=== PATIENT | female | born 1975 ===

== ENCOUNTER 2017-06-12 06:18 | Day surgery (SDC) | payer OTHER ==
[2017-06-12 06:37] VITALS: BMI 33.3
[2017-06-12] MEDS ORDERED: Lactated Ringer's 1,000 ML IV ONE (07:20)
--- NOTE | 2017-06-12 07:52 | CP.SDSHP ---
Same Day Surgery H & P - History Proposed Procedure: right open plantar fasciotomy Pre-Op Diagnosis: right painful plantar fasciotomy - Allergies Allergies: Allergies No Known Allergies Allergy (Verified 06/12/17 06:38) - Physical Exam Vital Signs: Vital Signs 06/12/17 06/12/17 07:00 07:36 Temperature 98.3 F Pulse Rate 68 68 Respiratory 18 Rate Blood Pressure 111/76 O2 Sat by Pulse 99 Oximetry Mental Status: Alert & Oriented x3 - {Optional Preform as Required} Integument: WNL - Impression Impression: Pt was seen and examined in SDS. Pt NPO status was confirmed. All pre-op testing and clearance in chart. Pt has exhausted all conservative treatment at this time and is opting for surgical intervention. Pt was explained procedure and post-operative course. All pt's questions were answered to satisfaction. No guarantees were made. Pt understands all risks, benefits and complications of procedure. Pt will follow-up with Dr. Cisneros within 1 week of surgery - Date & Time Date: 06/12/17 Time: 07:30 Short Stay Discharge - Short Stay Discharge Admitting Diagnosis/Reason for Visit: M79.671 Disposition: HOME/ ROUTINE Referrals: Wilberto Lema Jr., MD [Primary Care Provider] - Instructions: RICE Therapy (GEN) Additional Instructions (Diet, Activity): -Patient in good/stable condition for discharge home -Pt to resume medications per medical reconciliation -Resume regular diet Please keep dressing clean, dry, & intact -Use plastic bag over bandage for showering -Wear post op shoe at all times when ambulating -Call clinic if you see signs of infection (redness, swelling, malodor) -Please make an appointment to see Dr. Cisneros in office/clinic within 1 week for post-op check Progress Note/Discharge Note with Instructions: - Patient evaluated bedside in recovery s/p surgical procedure. - After surgical procedure patient in NAD - (+) Void, (+) Appetite - Capillary refill time <3s and NVSI intact. - Patient denies complaints at this time - Post operative instructions and plan of care explained to patient at length. - Pt. acknowledges understanding. - Patient stable for DC per podiatric surgery
--- NOTE | 2017-06-12 07:52 | CP.PCM.PN ---
Subjective - Date & Time of Evaluation Date of Evaluation: 06/12/17 Time of Evaluation: 07:52 - Subjective Subjective: Podiatry Alissa-operative Note- Dr. Cisneros 41 y.o F with no PMH seen in [facility] for right open plantar fasciotomy. Patient reports that she had had the bilaterally foot pain R>L for a while. She describes the pain as a sharp pain that is worse with stance and first step in the morning. She rates her pain 7/10 today on VAS scale. She has tried stretching, night splint, and conservative treatment without relief. Patient has no other pedal complaint at this time. She reports last drinking or eating at 9pm last night. She reports no problems with anesthesia. She denies n/v/sob/ cp/chills/f or d. PMH: none PSH: wisdom tooth removal SH: denies smoking, drinking or ilicit drug use MEDS: multivitamin and omega 3 FH:father-benign brain tumor, high cholesterol; mother-DM and HTN ALL: NKDA Objective - Vital Signs/Intake and Output Vital Signs (last 24 hours): Temp Pulse Resp BP Pulse Ox 98.3 F 68 18 111/76 99 06/12/17 07:00 06/12/17 07:36 06/12/17 07:00 06/12/17 07:00 06/12/17 07:00 - Constitutional Appears: Well, Non-toxic, No Acute Distress - Extremities Exam Additional comments: Vasc: DP and PT 2/4 bilaterally, CFT < 3 seconds x 10 digits, temperature warm to cool from proximal to distal toes, mild non-pitting edema noted to the right plantar rearfoot Ortho: MM is 5/5 in all four compartments: dorsiflexion, plantarflexion, inversion, and eversion; Pain upon palpation of the medial plantar calcaneal tuberosity bilaterally R> L and central aspect of plantar heel bilaterally; pain elicited upon palpation along the plantar medial arch bilaterally; gastroc equinus deformity noted bilaterally with limitation of ankle dorsiflexion upon extension of knees and beyond 90 degrees of ankle dorsiflexion upon flexion of both knees; flexible pes planus deformity noted bilaterally with decrease arch height upon weightbearing; STJ inversion/eversion is 20 degrees/10 degrees bilaterally; heels are in 2 degrees valgus upon NCSP evaluation bilaterally; bilateral MTJ is congruent; no HAV deformity noted bilaterally with normal 1st MPJ ROM; no crepitus noted; no hammertoes noted Gait: antalgic gait noted secondary to bilateral heel pain; increased pronation noted throughout the midstance phase of gait; early heel rise present bilaterally secondary to equinus; decreased arch height noted throughout the stance phase of gait bilaterally Neuro: protective and gross sensation intact bilaterally Derm: no open lesions noted, skin tugor WNL, no clinical signs of infection - Neurological Exam Neurological Exam: Alert, Awake, Oriented x3 - Psychiatric Exam Psychiatric exam: Normal Affect, Normal Mood Assessment and Plan - Assessment and Plan (Free Text) Assessment: 41 y.o F with no PMH seen in [facility] for right open plantar fasciotomy Plan: Pt was seen and examined in SDS Pt NPO status was confirmed All pre-op testing and clearance in chart Pt has exhausted all conservative treatment at this time and is opting for surgical intervention Pt was explained procedure and post-operative course All pt's questions were answered to satisfaction No guarantees were made Pt understands all risks, benefits and complications of procedure Pt will follow-up with Dr. Cisneros within 1 week of surgery
[2017-06-12] MEDS ORDERED: Propofol 10 mg/ml Inj (20 ML) ONE ×2 (08:00→08:30)
[2017-06-12] MEDS ORDERED: Midazolam 2 MG/2 ML VIAL ONE (08:01)
[2017-06-12] MEDS ORDERED: Dexamethasone 4 mg/1 ml ONE (08:01)
[2017-06-12] MEDS ORDERED: Lidocaine 1% Inj (20ml) ONE (08:02)
[2017-06-12] MEDS ORDERED: Bupivacaine 0.5% Inj(30mL) ONE (08:02)
[2017-06-12] MEDS ORDERED: Lidocaine 1% Inj (20ml) IJ ONE (08:12)
[2017-06-12] MEDS ORDERED: Bupivacaine 0.5% 50 ML IJ ONE (08:12)
[2017-06-12] MEDS ORDERED: Triamcinolone Acetonide 40 mg/mL Inj IM ONE (08:15)
[2017-06-12] MEDS ORDERED: Triamcinolone Acetonide 40 mg/mL Inj ONE (08:30)
[2017-06-12] MEDS ORDERED: Oxycodone/Acetaminophen 5/325 mg Tab PO PRN ×2 (09:01)
--- NOTE | 2017-06-12 09:06 | PCM.SURG1 ---
Surgeon's Initial Post Op Note - Surgeon's Notes Surgeon: Dr. Bo Cisneros, DPM Resource Engineer: Se Nunez PGY1 Type of Anesthesia: IV Sedation, Local Anesthesia Administered By: Dr. Kilgore Pre-Operative Diagnosis: Painful plantar fasciitis right foot Operative Findings: See dictation report. M- 3-0 nylon. I- Pre-op: 25 cc 1:1 1 % lidocaine plain, 0.5% marcaine plain. 1 cc Kenalog-40 Post-Operative Diagnosis: Same Operation Performed: 1. Plantar fasciotomy with C-arm assistance. 2. Debridement of calcaneal spur with manual bone rasp Specimen/Specimens Removed: None Estimated Blood Loss: EBL {In ML}: 0 Blood Products Given: N/A Drains Used: No Drains Post-Op Condition: Good Date of Surgery/Procedure: 06/12/17 Time of Surgery/Procedure: 09:07
[2017-06-12] MEDS ORDERED: Lactated Ringer's 1,000 ML IV SCH (09:45)
[2017-06-12 11:55] VITALS: RESP 18
[2017-06-12 12:53] VITALS: TEMP 98
[2017-06-12 13:31] VITALS: BP 105/65; PULSE 87; O2SAT 99
--- NOTE | 2017-06-12 17:07 | RAD ---
PROCEDURE: Right Foot Radiographs. HISTORY: s/p right foot plantar fasciotomy COMPARISON: None. FINDINGS: BONES: Inferior posterior calcaneal spurring. No fracture. JOINTS: Normal. SOFT TISSUES: Normal. OTHER FINDINGS: None. IMPRESSION: Calcaneal spurring.
--- NOTE | 2017-06-13 08:43 | OP ---
PROCEDURE DATE: 06/12/2017 PATIENT'S AGE: 41 SURGEON: Bo Cisneros DPM. NEWSPAPER DELIVERY DRIVER: Se Nunez, PGY-1. ANESTHESIOLOGIST: Roddy Kilgore MD. ANESTHESIA: IV sedation with local. PREOPERATIVE DIAGNOSIS: Painful plantar fascitis of the right foot. POSTOPERATIVE DIAGNOSIS: Painful plantar fascitis of the right foot. NAME OF PROCEDURE: 1. Plantar fasciotomy with C-arm assistance. 2. Debridement of calcaneal spur with manual bone rasp. INDICATION: The patient is a 41-year-old female with the above diagnosis. The patient has exhausted all conservative treatments at this time and now requires surgical intervention. The patient signed consent after careful explanation of risks, benefits, complications, and alternatives for surgical procedure. No guarantees were given nor implied. N.p.o. status was confirmed prior to taking the patient to the OR. PREPARATION: The patient was brought into the operating room and placed on the operating room table in the supine position. Timeout was performed for identification of the correct patient and procedure. After induction of IV sedation, the patient received a total of 25 mL of a 1:1 mixture of 1% lidocaine plain and 0.5% Marcaine plain in a local block fashion to the right plantar foot at the level of the plantar fascial insertion into the calcaneus. The right lower extremity was then prepped and draped in the normal sterile manner and the procedure began. No tourniquet was used during the procedure. DESCRIPTION OF PROCEDURE: PROCEDURE 1: Plantar fasciotomy with C-arm assistance. Attention was then turned to the plantar aspect of the patient's right foot where preoperatively the area of maximum pain had been marked out using a marking pen. C-arm fluoroscopy was then used along with an 18-gauge spinal needle to determine the level of the plantar calcaneal tuberosity where the plantar fascia inserted into the calcaneus. It was noted on x-ray that a calcaneal spur was located at this position. Utilizing both the preoperative marking with the marking pen as well as the C-arm fluoroscopy with the spinal needle, a small incision was made at the same level using a #15 blade down to the level of bone and the plantar fascia that inserted at this location was cut from its insertion site at the calcaneus. A #10 blade was then inserted into the same incision site and again a lateral to medial sweep was made along the calcaneal insertion site to ensure that all plantar fascia at that area was no longer attached to the calcaneus. PROCEDURE 2: Debridement of calcaneal spur with manual bone rasp. A bone rasp was then inserted into the incision site and the plantar calcaneal spur that was previously seen on fluoroscopy was rasped down until it was smooth and contoured evenly with the remainder of the calcaneus. A 10 mL syringe with an 18-gauge needle was then introduced into the surgical site with normal sterile saline and the area was flushed copiously with this normal sterile saline. The surgical site was then closed with superficial 3-0 nylon sutures and the site was dressed with Xeroform dry sterile dressing and a light ZANDRA bandage; 1 mL of Kenalog 40 was also injected into the area postoperatively before the incision site was dressed. POSTOPERATIVE CONDITION: The patient tolerated the anesthesia and procedure well and was escorted to the recovery room with vital signs stable and neurovascular status intact to the right lower extremity. The patient is to remain nonweightbearing to the right lower extremity with the assistance of crutches and will be discharged from the hospital later today. Patient will follow up with Dr. Cisneros in his private office at her next regularly scheduled appointment. Se Nunez DPM Bo Cisneros DPM [email or web address]
== END 2017-06-12 13:30 | disposition home or self-care (01) ==
LOC: H.OPSURG 06:18
PROVIDERS: ATTEND Podiatrist Foot & Ankle Surgery
DX: M79.671 Pain in right foot (principal); M72.2 Plantar fascial fibromatosis; M77.31 Calcaneal spur, right foot
CPT/HCPCS: 28008; 28119; 73630; 97116; 97161; G8978; G8979; G8980; J0690; J2250; J2704; J3010; J3301; J7030; J7120

== ENCOUNTER 2017-07-09 15:16 | Inpatient (IN) | payer OTHER ==
[2017-07-09 15:16] VITALS: BMI 33.3
[2017-07-09] MEDS ORDERED: Enoxaparin 100 mg Syringe SC STA (17:12)
--- NOTE | 2017-07-09 17:23 | ED PDOC ---
Lower Extremity Pain/Injury Chief Complaint (Nursing): Lower Extremity Problem/Injury Chief Complaint (Provider): leg pain History Per: Patient History/Exam Limitations: no limitations Onset/Duration Of Symptoms: Days (14) Current Symptoms Are (Timing): Still Present Additional Complaint(s): 42 yo ,f, PMhx/o RADHA, s/p Right plantar fasciotomy 06/12/17 presents to ED after having lower ext US that showed DVT right leg. Patient reports right leg pain started 2 weeks ago, intermittent, 5/10 intensity after she started using a therapeutic boot, associated with mild swelling and redness only for 3 days when onset of symptoms. She also c/o URI symptoms started 5 days ago (cough, sneezing, sore throat) and subjective fever 2 days ago, only one episode. she denies chest pain, SOB, n,v,d,abd pain, dysuria, sick contact, hx/o DVT. Patient had evaluation by Dry Kiln Feeder today and due to persistent pain after the surgery, a leg us was ordered and showed DVT involving right popliteal vein. PMD: Wilberto Lema Dry Kiln Feeder: liana Cisneros - Risk Factors DVT Risk Factors: Pos: Decreased Mobility, Decreased Activity, Extremity Immobiliztion Past Medical History Vital Signs: Last Vital Signs Temp 98.0 F 07/09/17 15:55 Pulse 81 07/09/17 15:55 Resp 16 07/09/17 15:55 BP 103/70 07/09/17 15:55 Pulse Ox 100 07/09/17 15:55 - Medical History Other PMH: RADHA - Family History Family History: States: Diabetes (mother), Hypertension (mother), Other - Social History Alcohol: None Drugs: Denies - Home Medications Home Medications: Ambulatory Orders Medication Instructions Recorded Pseudoephedrine HCl [Sudafed] 30 mg PO Q6 PRN 07/09/17 Rivaroxaban [Xarelto] 15 mg PO BID #42 tab 07/11/17 Rivaroxaban [Xarelto] 20 mg PO DAILY #14 tab 07/11/17 - Allergies Allergies/Adverse Reactions: Allergies Allergy/AdvReac Type Severity Reaction Status Date / Time No Known Allergies Allergy Verified 06/12/17 06:38 Wells Criteria for PE - Wells Criteria for Pulmonary Embolism P.E is #1 Diagnosis, or Equally Likely: No Heart Rate >100: No Immobilization at least 3 days;Surgery previous 4 weeks: Yes Previous, objectively diagnosed PE or DVT: No Hemoptysis: No Malignancy w/treatment within 6 months, or palliative: No Total Score: 1.5 Review of Systems Respiratory: Positive for: Cough, Other (sore throat) Musculoskeletal: Positive for: Leg Pain Physical Exam - Physical Exam Appears: Positive for: Well, No Acute Distress Head Exam: Positive for: ATRAUMATIC, NORMOCEPHALIC Skin: Positive for: Normal Color Eye Exam: Positive for: Normal appearance Neck: Positive for: Normal Cardiovascular/Chest: Positive for: Regular Rate, Rhythm. Negative for: Edema, Murmur Respiratory: Positive for: Normal Breath Sounds. Negative for: Crackles, Rales , Rhonchi, Wheezing Gastrointestinal/Abdominal: Positive for: Soft. Negative for: Tenderness, Guarding, Rebound Back: Positive for: Normal Inspection. Negative for: L CVA Tenderness, R CVA Tenderness Extremity: Positive for: Normal ROM, Calf Tenderness (right side calf tenderness. Kandace sign positive), Capillary Refill (less 3 sec), Other (small hematoma 2 cm medial side right ankle. DT and PT pulses normal ). Negative for : Pedal Edema, Swelling Neurologic/Psych: Positive for: Alert, Oriented. Negative for: Motor/Sensory Deficits - Laboratory Results Result Diagrams: 07/10/17 05:30 07/10/17 05:30 - ECG O2 Sat by Pulse Oximetry: 100 Medical Decision Making Medical Decision Makin: 15 PM 42 yo ,f, PMhx/o RADHA, s/p right plantar fasciotomy 06/12/17, immobilization, taking control medications, sent with US findings of DVT Impresion DVT involving right popliteal vein. Differential Venous insufficiency, cellulitis, lugo cyst ruptured Plan CBC, CMP , PT/INR EKG, troponin, CXR -US Duplex right leg Lovenox therapeutic 90 mg sc stat 18:42 Labs reviewed, US Duplex showed DVT distal popliteal vein. Patient will be admitted to c/w treatment. patient agree with the plan. Disposition - Clinical Impression Clinical Impression: DVT (deep venous thrombosis) - Disposition Disposition Time: 22:00 Condition: FAIR
[2017-07-09 17:30] LABS: BASO % 0.6 % (0.0-2.0); EOS # 0.3 K/uL (0.0-0.7); EOS % 4.2 % (0.0-4.0); HEMOGLOBIN 12.2 g/dL (12.0-16.0); LYMPH # 2.1 K/uL (1.0-4.3); LYMPH % 26.6 % (20.0-40.0); MEAN CELL VOLUME 90.5 fl (81.0-99.0); MEAN CORPUSCULAR HEMOGLOBIN 30.2 pg (27.0-31.0); MEAN CORPUSCULAR HGB CONC 33.4 g/dL (33.0-37.0); MEAN PLATELET VOLUME 7.6 fl (7.2-11.7); MONO # 0.6 K/uL (0.0-0.8); MONO % 8.1 % (0.0-10.0); NEUT # 4.7 K/uL (1.8-7.0); NEUT % 60.5 % (50.0-75.0); NRBC % 0.1 % (0.0-0.0); RBC 4.05 Mil/uL (3.80-5.20); RED CELL DISTRIBUTION WIDTH 13.4 % (11.5-14.5); WHITE BLOOD COUNT 7.8 K/uL (4.8-10.8)
[2017-07-09 17:40] LABS: ALB/GLOB RATIO 1.2 (1.0-2.1); ALBUMIN 3.9 g/dL (3.5-5.0); ALT/SGPT 36 U/L (9-52); AST/SGOT 24 U/L (14-36); BLOOD UREA NITROGEN 11 mg/dl (7-17); CALCIUM 9.1 mg/dL (8.4-10.2); GFR AFRICAN-AMERICAN > 60; GFR NON-AFRICAN AMERICAN > 60
--- NOTE | 2017-07-09 18:23 | US ---
PROCEDURE: Right lower extremity venous duplex Doppler. HISTORY: DVT. COMPARISON: None available. TECHNIQUE: Common femoral, superficial femoral, popliteal and posterior tibial veins were evaluated. Flow was assessed with color Doppler, compressibility, assessment of phasic flow and augmentation response. FINDINGS: COMMON FEMORAL VEIN: Unremarkable. SUPERFICIAL FEMORAL VEIN: Unremarkable. POPLITEAL VEIN: There is thrombus seen within distal popliteal vein (partially compressible) with some flow seen in the mid and proximal popliteal vein. . POSTERIOR TIBIAL VEIN: Unremarkable. OTHER FINDINGS: None. IMPRESSION: DVT seen within the distal popliteal vein. Findings discussed with Dr. Potter at approximately approximately 1820 p.m. with written down and read back verification.
[2017-07-10] MEDS: Promethazine/Cod 6.25mg-10mg/5ml Syr UD PO PRN ×3 (00:30→22:02)
[2017-07-10 06:50] LABS: MEAN CORPUSCULAR HEMOGLOBIN 30.7 pg (27.0-31.0); MEAN CORPUSCULAR HGB CONC 34.1 g/dL (33.0-37.0); RBC 3.9 Mil/uL (3.80-5.20); RED CELL DISTRIBUTION WIDTH 13.6 % (11.5-14.5); WHITE BLOOD COUNT 7.4 K/uL (4.8-10.8)
[2017-07-10 07:05] LABS: ALB/GLOB RATIO 1.1 (1.0-2.1); ALBUMIN 3.5 g/dL (3.5-5.0); ALT/SGPT 33 U/L (9-52); AST/SGOT 21 U/L (14-36); BLOOD UREA NITROGEN 13 mg/dl (7-17); CALCIUM 8.7 mg/dL (8.4-10.2); GFR AFRICAN-AMERICAN > 60; GFR NON-AFRICAN AMERICAN > 60; HDL CHOLESTEROL 31 MG/DL (30-70)
[2017-07-10 07:16] LABS: LDL CHOLESTEROL 117 mg/dL (0-129)
--- NOTE | 2017-07-10 08:21 | CP.PCM.HP ---
History of Present Illness - History of Present Illness History of Present Illness: Patient evaluated at bedside with Dr Salinas this morning. 42 yo ,f, s/p Right plantar fasciotomy 06/12/17 presented to ED Yesterday c/o leg pain. Patient reports right leg pain started 2 weeks ago, intermittent, after she started using the therapeutic boot after the Sx. she denies chest pain, SOB, n,v,d,abd pain, dysuria, sick contact, hx/o DVT. Patient had evaluation by Cafeteria Attendant Yesterday and due to persistent pain after the surgery , a leg us was ordered and showed DVT involving right popliteal vein. PMD: Wilberto Lema Cafeteria Attendant: Bo Cisneros Present on Admission - Present on Admission Any Indicators Present on Admission: No Review of Systems - Review of Systems All systems: reviewed and no additional remarkable complaints except - Musculoskeletal Musculoskeletal: Other Additional comments: LE pain Past Patient History - Past Medical History & Family History Past Medical History?: No - Past Social History Smoking Status: Never Smoked - MUSCULOSKELETAL/RHEUMATOLOGICAL Hx Falls: No - PSYCHIATRIC Hx Substance Use: No - SURGICAL HISTORY Hx Surgeries: Yes Other/Comment: Right plantar fasciotomy - ANESTHESIA Hx Anesthesia: Yes Hx Anesthesia Reactions: No Hx Malignant Hyperthermia: No Meds Allergies/Adverse Reactions: Allergies Allergy/AdvReac Type Severity Reaction Status Date / Time No Known Allergies Allergy Verified 06/12/17 06:38 Physical Exam - Constitutional Appears: Non-toxic, No Acute Distress - Head Exam Head Exam: NORMAL INSPECTION - Eye Exam Eye Exam: EOMI, PERRL - ENT Exam ENT Exam: Mucous Membranes Moist - Respiratory Exam Respiratory Exam: Clear to Auscultation Bilateral, NORMAL BREATHING PATTERN. absent: Rales - Cardiovascular Exam Cardiovascular Exam: REGULAR RHYTHM, +S1, +S2. absent: Gallop - GI/Abdominal Exam GI & Abdominal Exam: Normal Bowel Sounds, Soft. absent: Tenderness - Extremities Exam Extremities exam: Positive for: tenderness (Mild R/leg) - Neurological Exam Neurological exam: Alert, Normal Gait, Oriented x3 - Skin Skin Exam: Warm Results - Vital Signs Recent Vital Signs: Last Vital Signs Temp 98.2 F 07/10/17 07:51 Pulse 68 07/10/17 07:51 Resp 18 07/10/17 07:51 BP 96/58 L 07/10/17 07:51 Pulse Ox 98 07/10/17 07:51 - Labs Result Diagrams: 07/10/17 05:30 07/10/17 05:30 Labs: Laboratory Results - last 24 hr 07/09/17 07/09/17 07/09/17 17:26 17:26 17:26 WBC 7.8 RBC 4.05 Hgb 12.2 Hct 36.7 MCV 90.5 MCH 30.2 MCHC 33.4 RDW 13.4 Plt Count 360 MPV 7.6 Neut % (Auto) 60.5 Lymph % (Auto) 26.6 [place] % (Auto) 8.1 Eos % (Auto) 4.2 H Baso % (Auto) 0.6 Neut # (Auto) 4.7 Lymph # (Auto) 2.1 [place] # (Auto) 0.6 Eos # (Auto) 0.3 Baso # (Auto) 0.0 PT 11.0 INR 1.0 Sodium 142 Potassium 4.2 Chloride 104 Carbon Dioxide 25 Anion Gap 17 BUN 11 Creatinine 0.6 L Est GFR ( Amer) > 60 Est GFR (Non-Af Amer) > 60 Random Glucose 86 Calcium 9.1 Total Bilirubin 0.2 AST 24 ALT 36 Alkaline Phosphatase 69 Total Protein 7.2 Albumin 3.9 Globulin 3.3 Albumin/Globulin Ratio 1.2 Triglycerides Cholesterol LDL Cholesterol Direct HDL Cholesterol Vitamin B12 07/10/17 07/10/17 05:30 05:30 WBC 7.4 RBC 3.90 Hgb 12.0 Hct 35.1 MCV 90.0 MCH 30.7 MCHC 34.1 RDW 13.6 Plt Count 367 MPV Neut % (Auto) Lymph % (Auto) [place] % (Auto) Eos % (Auto) Baso % (Auto) Neut # (Auto) Lymph # (Auto) [place] # (Auto) Eos # (Auto) Baso # (Auto) PT INR Sodium 140 Potassium 4.4 Chloride 103 Carbon Dioxide 27 Anion Gap 14 BUN 13 Creatinine 0.7 Est GFR ( Amer) > 60 Est GFR (Non-Af Amer) > 60 Random Glucose 89 Calcium 8.7 Total Bilirubin 0.2 AST 21 ALT 33 Alkaline Phosphatase 65 Total Protein 6.6 Albumin 3.5 Globulin 3.2 Albumin/Globulin Ratio 1.1 Triglycerides 138 Cholesterol 178 LDL Cholesterol Direct 117 HDL Cholesterol 31 Vitamin B12 248 Assessment & Plan - Assessment and Plan (Free Text) Assessment: R/leg DVT S/P plantar fasciotomy First episode of DVT Switch from Lovenox to Xarelto for anticoag Hem-Onc consult. Will f/u recs
[2017-07-10] MEDS ORDERED: Enoxaparin 100 mg Syringe SC SCH (09:00)
[2017-07-10] MEDS ORDERED: Iodixanol 320 MG/ML 100 ML BOTTLE IV ONE (09:34)
[2017-07-10] MEDS ORDERED: Sodium Chloride 0.9% 100 ML ONE (09:34)
--- NOTE | 2017-07-10 10:44 | RAD ---
HISTORY: dvt COMPARISON: No prior. TECHNIQUE: Chest PA and lateral FINDINGS: LUNGS: No active pulmonary disease. PLEURA: No significant pleural effusion identified. No pneumothorax apparent. CARDIOVASCULAR: Normal. OSSEOUS STRUCTURES: No significant abnormalities. VISUALIZED UPPER ABDOMEN: Normal. OTHER FINDINGS: None. IMPRESSION: No active disease.
--- NOTE | 2017-07-10 10:50 | CP.PCM.CON ---
History of Present Illness - History of Present Illness History of Present Illness: This is a 42 yrs old female who had a surgery done for plantar fasciatis by Dr Cisneros.. She was asked to stay in bed for 2-3 weeks. She was ten given a orthopedic boot. She however was having a significant amount of pain in the foot and the calf. She came to [facility] where se ad a venous doppler, and fond to have a DVT the right lower extremity. She was started on lovenox and then converted to xarelto. Pt has had some cough since she developed the DVT. Chest Xray was normal but a CT scan of the chest was not done. She gives a h/o her mother and her sister having similar problems after surgery. Past Patient History - Past Medical History & Family History Past Medical History?: No - Past Social History Smoking Status: Never Smoked - MUSCULOSKELETAL/RHEUMATOLOGICAL Hx Falls: No - PSYCHIATRIC Hx Substance Use: No - SURGICAL HISTORY Hx Surgeries: Yes Other/Comment: Right plantar fasciotomy - ANESTHESIA Hx Anesthesia: Yes Hx Anesthesia Reactions: No Hx Malignant Hyperthermia: No Meds Allergies/Adverse Reactions: Allergies Allergy/AdvReac Type Severity Reaction Status Date / Time No Known Allergies Allergy Verified 06/12/17 06:38 - Medications Medications: Current Medications Acetaminophen (Tylenol 325mg Tab) 650 mg PO Q6 PRN PRN Reason: Pain, Mild (1-3) Promethazine HCl/Codeine (Phenergan/Codeine Oral Syrup) 5 ml PO Q6 PRN PRN Reason: Cough Last Admin: 07/10/17 08:54 Dose: 5 ml Rivaroxaban (Xarelto) 15 mg PO Q12 MERVIN PRN Reason: Protocol Physical Exam - Additional Findings Additional findings: Physwical exam; Alert,well oriented in no acute distress neck; Supple, no adsenopathy Chest; clear, no rales or rhonchi Heart, RSR, no murmur Abd; soft, no mass. no h/s megaly Results - Vital Signs Recent Vital Signs: Last Vital Signs Temp 98.2 F 07/10/17 07:51 Pulse 68 07/10/17 07:51 Resp 18 07/10/17 07:51 BP 96/58 L 07/10/17 07:51 Pulse Ox 98 07/10/17 07:51 - Labs Result Diagrams: 07/10/17 05:30 07/10/17 05:30 Labs: Laboratory Results - last 24 hr 07/09/17 07/09/17 07/09/17 17:26 17:26 17:26 WBC 7.8 RBC 4.05 Hgb 12.2 Hct 36.7 MCV 90.5 MCH 30.2 MCHC 33.4 RDW 13.4 Plt Count 360 MPV 7.6 Neut % (Auto) 60.5 Lymph % (Auto) 26.6 [place] % (Auto) 8.1 Eos % (Auto) 4.2 H Baso % (Auto) 0.6 Neut # (Auto) 4.7 Lymph # (Auto) 2.1 [place] # (Auto) 0.6 Eos # (Auto) 0.3 Baso # (Auto) 0.0 PT 11.0 INR 1.0 Sodium 142 Potassium 4.2 Chloride 104 Carbon Dioxide 25 Anion Gap 17 BUN 11 Creatinine 0.6 L Est GFR ( Amer) > 60 Est GFR (Non-Af Amer) > 60 Random Glucose 86 Calcium 9.1 Total Bilirubin 0.2 AST 24 ALT 36 Alkaline Phosphatase 69 Total Protein 7.2 Albumin 3.9 Globulin 3.3 Albumin/Globulin Ratio 1.2 Triglycerides Cholesterol LDL Cholesterol Direct HDL Cholesterol Vitamin B12 TSH 3rd Generation 07/10/17 07/10/17 05:30 05:30 WBC 7.4 RBC 3.90 Hgb 12.0 Hct 35.1 MCV 90.0 MCH 30.7 MCHC 34.1 RDW 13.6 Plt Count 367 MPV Neut % (Auto) Lymph % (Auto) [place] % (Auto) Eos % (Auto) Baso % (Auto) Neut # (Auto) Lymph # (Auto) [place] # (Auto) Eos # (Auto) Baso # (Auto) PT INR Sodium 140 Potassium 4.4 Chloride 103 Carbon Dioxide 27 Anion Gap 14 BUN 13 Creatinine 0.7 Est GFR ( Amer) > 60 Est GFR (Non-Af Amer) > 60 Random Glucose 89 Calcium 8.7 Total Bilirubin 0.2 AST 21 ALT 33 Alkaline Phosphatase 65 Total Protein 6.6 Albumin 3.5 Globulin 3.2 Albumin/Globulin Ratio 1.1 Triglycerides 138 Cholesterol 178 LDL Cholesterol Direct 117 HDL Cholesterol 31 Vitamin B12 248 TSH 3rd Generation 1.43 Assessment & Plan - Assessment and Plan (Free Text) Assessment: impression; DVT right lower extremity.post surgery Plan; Have ordered a CT scan of the chest to r/o pulmonary embolism. Agree with the xarelto for treatment. Length of treatment will depend on the result of CT scan and if she has a hypercoagulopathy - Date & Time Date: 07/10/17 Time: 11:01
--- NOTE | 2017-07-10 11:47 | CARD ---
APPROVED REPORT EKG Measurement Heart [id number] <Conclusion> Normal sinus rhythm Normal ECG
--- NOTE | 2017-07-10 12:03 | CT ---
PROCEDURE: CT Chest with contrast (Pulmonary Angiogram) HISTORY: R/o PE, has DVT with recent right plantar surgery COMPARISON: None available. TECHNIQUE: Axial computed tomography images were obtained of the chest in the pulmonary arterial phase of enhancement. Coronal and sagittal reformatted images were created and reviewed. Intravenous contrast dose: 95 mL Visipaque 320 Radiation dose: Total exam DLP = 436.66 mGy-cm. This CT exam was performed using one or more of the following dose reduction techniques: Automated exposure control, adjustment of the mA and/or kV according to patient size, and/or use of iterative reconstruction technique. FINDINGS: PULMONARY ARTERIES: There are multiple filling defects in left lower lobe segmental/subsegmental pulmonary artery branches. There is a curvilinear filling defect seen in the left upper lobe pulmonary artery, possibly chronic. There is a curvilinear filling defect in the left lower lobe pulmonary artery, possibly chronic. Curvilinear filling defect seen in the right lower lobe pulmonary artery, possibly chronic. No occlusive filling defects seen in right lower lobe pulmonary artery branches. No other pulmonary arterial filling defects are appreciated. AORTA: No acute findings. No thoracic aortic aneurysm. LUNGS: Unremarkable. No nodule, mass or pulmonary consolidation. PLEURAL SPACES: Unremarkable. No effusion or pneuomothorax. HEART: Unremarkable. No cardiomegaly. No significant pericardial effusion. LYMPH NODES: No lymphadenopathy. BONES, CHEST WALL: Unremarkable. No fracture or destructive lesion OTHER FINDINGS: Unremarkable. IMPRESSION: Findings consistent with acute left lower lobe pulmonary artery emboli. Possible chronic emboli in left upper lobe, left lower lobe and right lower lobe as well. These findings were discussed with LC Rodrigez, at 11:56 a.m. by telephone.
[2017-07-10] MEDS: Enoxaparin 100 mg Syringe SC SCH ×2 (13:02→20:40)
[2017-07-11] MEDS ORDERED: Promethazine/Cod 6.25mg-10mg/5ml Syr UD PO STA (00:27)
[2017-07-11] MEDS: Enoxaparin 100 mg Syringe SC SCH ×2 (08:47→20:37)
--- NOTE | 2017-07-11 09:25 | CP.PCM.PN ---
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 The smaller ones are diffuse. She was started on lovenox. Since she had had more cough and some chest pain, i have asked animal care specialist to see her. Objective - Vital Signs/Intake and Output Vital Signs (last 24 hours): Temp Pulse Resp BP Pulse Ox 98.3 F 79 20 100/64 99 07/11/17 07:54 07/11/17 07:54 07/11/17 07:54 07/11/17 07:54 07/11/17 07:54 - Medications Medications: Current Medications Acetaminophen (Tylenol 325mg Tab) 650 mg PO Q6 PRN PRN Reason: Pain, Mild (1-3) Last Admin: 07/11/17 00:21 Dose: 650 mg Enoxaparin Sodium (Lovenox) 90 mg SC Q12 MERVIN PRN Reason: Protocol Last Admin: 07/11/17 08:47 Dose: 90 mg Promethazine HCl/Codeine (Phenergan/Codeine Oral Syrup) 5 ml PO Q6 PRN PRN Reason: Cough Last Admin: 07/10/17 22:02 Dose: 5 ml - Labs Labs: 07/10/17 05:30 07/10/17 05:30 PT 11.0 Seconds (9.8-13.1) 07/09/17 17:26 INR 1.0 (0.9-1.2) 07/09/17 17:26
[2017-07-11] MEDS: Albuterol 0.083% Inhal Sol (2.5 mg/3 mL) UD INH PRN ×2 (10:41→18:02)
--- NOTE | 2017-07-11 10:51 | CON ---
DATE: HISTORY OF PRESENT ILLNESS: Ms. Greenfield is a 42-year-old female who was referred by for pulmonary evaluation. She was admitted with dizziness, thrombosis of the right lower extremity, and pulmonary emboli and is under treatment for the above and referred for pulmonary evaluation for appropriate followup and therapy of cough and chest tightness. She recently had right foot surgery for plantar fasciitis and has been in bed for the past several weeks prior to developing swelling of the right lower extremity. She was seen in the Emergency Room, evaluated and found to have right DVT. She also has a history of using control pills, otherwise, past medical history is unremarkable. FAMILY HISTORY: Remarkable for mother and sister that have dizziness and thrombosis of the lower extremity and father who had brain surgery. REVIEW OF SYSTEMS: Essentially unremarkable except for right foot pain. PHYSICAL EXAMINATION: GENERAL: The patient is alert, oriented, appears to be presently comfortable in no apparent distress except for cough. VITAL SIGNS: Blood pressure 100/64, pulse of 79, respiratory rate of 20. She is febrile. O2 sat of 99% on room air. SKIN: Shows fair turgor. HEENT: Pupils are equal and reactive to accommodation. JVP flat. Mouth shows fair hygiene. LUNGS: Fair aeration, with some scattered bilateral basilar rales. HEART: Regular. No murmurs or gallops. ABDOMEN: Soft and nontender, no organomegaly. EXTREMITIES: There is no calf tenderness bilaterally, but there is tenderness over the right ankle from a surgical site. CENTRAL NERVOUS SYSTEM: Exam grossly intact. LABORATORY DATA: WBC 7.4, hemoglobin 12.0, and platelet count 367,000. Sodium 140, potassium 4.4, BUN 13, and creatinine 0.7. PT 11 and INR 1.0. Chest x-ray; no acute cardiopulmonary pathology. Extremity ultrasound is remarkable for DVT within this popliteal vein on the right lower extremity. EKG; normal sinus rhythm. CT scan of the chest, findings consistent with acute left lower lobe pulmonary artery emboli and possible chronic emboli in left upper lobe, left lower lobe and right lower lobe as well. IMPRESSION AND PLAN: Dizziness, thrombosis of right lower extremity with bilateral pulmonary emboli. This could be secondary to the patient's recent surgery and immobilization, but the patient also has chronic pulmonary embolic disease on CAT scan, so one has to rule out blood dyscrasias or coagulopathy, once suggest continue therapy with anticoagulation, antitussives will be given as well as bronchodilators p.r.n. If the patient is clinically stable and able to ambulate without difficulty, it will be okay to discharge in the next 24 hours on anticoagulation therapy for another 3-6 months. Thank you for this consultation. Dave Ghosh MD
--- NOTE | 2017-07-11 13:09 | PN ---
DATE: 07/11/2017 SUBJECTIVE: The patient seen and examined. Interim events noted. Consult noted and appreciated. The patient with DVT and multiple pulmonary embolism. The patient feels okay. Denies any chest pain or shortness of breath, but had episodes of coughing yesterday. Neck pain is adequately controlled. PHYSICAL EXAMINATION GENERAL: The patient is in no acute distress. VITAL SIGNS: Stable. HEART: S1 and S2 normal and regular. LUNGS: Good bilateral air exchange. ABDOMEN: Soft and nontender. EXTREMITIES: The patient has DVT. No acute neurological compromise. No edema. No gangrene. CENTRAL NERVOUS SYSTEM: Exam is essentially unchanged. DIAGNOSTIC DATA: Available diagnostic data reviewed. ASSESSMENT AND PLAN: Overall, the patient's medical condition is stable. 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 plan as discussed with the patient. Jorge Salinas MD
[2017-07-11] MEDS: Promethazine/Cod 6.25mg-10mg/5ml Syr UD PO PRN (18:45)
[2017-07-12 00:23] VITALS: O2SAT 98
[2017-07-12 08:06] VITALS: BP 114/78; PULSE 76; RESP 20; TEMP 98.8
[2017-07-12] MEDS: Promethazine/Cod 6.25mg-10mg/5ml Syr UD PO PRN (09:16)
[2017-07-12] MEDS: Enoxaparin 100 mg Syringe SC SCH (09:17)
--- NOTE | 2017-07-12 10:14 | PN ---
DATE: 07/12/2017 SUBJECTIVE: The patient is seen and examined. Interim events noted. Consults noted and appreciated. Pulmonology and Hematology consult and interventions noted and appreciated. Case discussed with Hematology and Oncology. The patient feels okay. Denies any chest pain, shortness of breath . PHYSICAL EXAMINATION: GENERAL: The patient is in no acute distress. VITAL SIGNS: Stable. HEART: S1 and S2, normal and regular. LUNGS: Good bilateral air exchange. ABDOMEN: Soft and nontender. EXTREMITIES: The patient has DVT. LABORATORY DATA: Available diagnostic data reviewed. PLAN: Overall, the patient is clinically stable. We will discharge the patient home. Case and plan discussed with the patient. Need for anticoagulation, stopping oral contraceptives. I explained to the patient in detail and need for follow up with primary care physician in Hematology Office , the patient understood and he is willing to do it. Plan as ordered. Jorge Salinas MD
[2017-07-12] MEDS: Albuterol 0.083% Inhal Sol (2.5 mg/3 mL) UD INH PRN (13:19)
[2017-07-14 12:16] LABS: CARDIOLIPIN AB (IGA) 17 APL (<=11)
== END 2017-07-12 15:30 | disposition home or self-care (01) | DRG 300 ==
LOC: H.ER 15:16 → H.ERHOLD 18:35 → H.MEDSURG1 22:10
PROVIDERS: ADMIT Internal Medicine; ATTEND Internal Medicine
DX: T81.718A Complication of other artery following a procedure, not elsewhere classified, initial encounter (principal); I82.431 Acute embolism and thrombosis of right popliteal vein; I26.99 Other pulmonary embolism without acute cor pulmonale; Y83.8 Other surgical procedures as the cause of abnormal reaction of the patient, or of later complication, without mention of misadventure at the time of the procedure; T81.72XA Complication of vein following a procedure, not elsewhere classified, initial encounter; G47.33 Obstructive sleep apnea (adult) (pediatric)

== ENCOUNTER 2017-07-17 11:51 | Inpatient (IN) | payer OTHER ==
[2017-07-17 11:58] VITALS: BMI 31.6
[2017-07-17] MEDS ORDERED: DiphenhydrAMINE 50 mg/ml Inj IVP STA (12:38)
[2017-07-17] MEDS ORDERED: DiphenhydrAMINE 50 mg/ml Inj ONE (12:58)
[2017-07-17 13:08] LABS: BASO % 0.7 % (0.0-2.0); EOS # 0.2 K/uL (0.0-0.7); EOS % 2.6 % (0.0-4.0); HEMOGLOBIN 12.8 g/dL (12.0-16.0); LYMPH # 1.6 K/uL (1.0-4.3); LYMPH % 23.2 % (20.0-40.0); MEAN CELL VOLUME 89.3 fl (81.0-99.0); MEAN CORPUSCULAR HEMOGLOBIN 30.6 pg (27.0-31.0); MEAN CORPUSCULAR HGB CONC 34.3 g/dL (33.0-37.0); MEAN PLATELET VOLUME 7.7 fl (7.2-11.7); MONO # 0.3 K/uL (0.0-0.8); MONO % 4.8 % (0.0-10.0); NEUT # 4.8 K/uL (1.8-7.0); NEUT % 68.7 % (50.0-75.0); NRBC % 0.1 % (0.0-0.0); RBC 4.18 Mil/uL (3.80-5.20); RED CELL DISTRIBUTION WIDTH 13.6 % (11.5-14.5)
[2017-07-17 13:23] LABS: ALB/GLOB RATIO 1.2 (1.0-2.1); ALBUMIN 3.8 g/dL (3.5-5.0); ALT/SGPT 137 U/L (9-52); AST/SGOT 47 U/L (14-36); BLOOD UREA NITROGEN 13 mg/dl (7-17); CALCIUM 8.9 mg/dL (8.4-10.2); GFR AFRICAN-AMERICAN > 60; GFR NON-AFRICAN AMERICAN > 60
[2017-07-17 13:45] LABS: INR 1.1 (0.9-1.2); PROTHROMBIN TIME 12.7 Seconds (9.8-13.1)
--- NOTE | 2017-07-17 13:53 | ED PDOC ---
HPI: General Adult Time Seen by Provider: 07/17/17 12:16 Chief Complaint (Nursing): Abnormal Skin Integrity History Per: Patient Additional Complaint(s): Pt. states on Saturday she developed a pruritic rash on her R forearm which progressively worsened and today rash is now throughout the entire body. Further states she started Xarelto on Saturday and last dose she took was last night. She is currently taking Xarelto for R leg DVT and a PE. Denies SOB, chest pain, palpitations, fever, throat swelling, hx of allergic reactions. Of note, pt. has not tried any new medications other than xarelto and has not tried any foods. Past Medical History Reviewed: Historical Data, Nursing Documentation, Vital Signs Vital Signs: Last Vital Signs Temp 98.1 F 07/17/17 17:12 Pulse 97 H 07/17/17 18:06 Resp 17 07/17/17 18:06 BP 124/88 07/17/17 17:12 Pulse Ox 98 07/17/17 18:15 - Medical History PMH: Deep Vein Thrombosis, Pulmonary Embolism - Family History Family History: States: Diabetes (mother), Hypertension (mother) - Home Medications Home Medications: Ambulatory Orders Medication Instructions Recorded Rivaroxaban [Xarelto] 15 mg PO BID #42 tab 07/11/17 Rivaroxaban [Xarelto] 20 mg PO DAILY #14 tab 07/11/17 - Allergies Allergies/Adverse Reactions: Allergies Allergy/AdvReac Type Severity Reaction Status Date / Time No Known Allergies Allergy Verified 07/17/17 12:13 Review of Systems ROS Statement: Except As Marked, All Systems Reviewed And Found Negative Skin: Positive for: Rash Physical Exam - Physical Exam Appears: Positive for: Well, Non-toxic, No Acute Distress Skin: Positive for: Normal Color, Warm, Rash (diffuse urticarial rash without pustules or vesicles) ENT: Positive for: Normal ENT Inspection. Negative for: Pharyngeal Erythema, Tonsillar Exudate, Tonsillar Swelling Neck: Positive for: Normal, Painless ROM Cardiovascular/Chest: Positive for: Regular Rate, Rhythm Respiratory: Positive for: Normal Breath Sounds. Negative for: Wheezing, Respiratory Distress Gastrointestinal/Abdominal: Positive for: Normal Exam, Soft. Negative for: Tenderness Neurologic/Psych: Positive for: Alert, Oriented - Laboratory Results Result Diagrams: 07/17/17 13:03 03/07/18 13:03 - ECG O2 Sat by Pulse Oximetry: 98 - Progress ED Course And Treament: Labs ordered. Benadryl 50mg IV, solu-medrol 125mg IV, pepcid 40mg IV ordered. On re-evaluation, rash resolved. Case d/w Dr. Guthrie who recommends lovenox prior to starting Pradaxa and admission to hospital. As per Tori, ED Pharmacist, Pradaxa cannot be started without 5-10 day parenteral anticoagulation. There are no studies showing how to change from Xarelto to Pradaxa. Case d/w Dr. Salinas (pt was last admitted to Dr. Salinas's service last month), and arrangements made for admission. Multiple calls made to Dr. Castro (Dr. Salinas's resident) but no answer. Disposition - Clinical Impression Clinical Impression: Adverse reaction to drug, DVT (deep venous thrombosis), Pulmonary embolism - Patient ED Disposition Is Patient to be Admitted: Yes - Disposition Disposition Time: 14:21 Condition: FAIR - Pt Status Changed To: Hospital Disposition Of: Inpatient - Admit Certification Admit to Inpatient:: After my assessment, the patient will require hospitalization for at least two midnights. This is because of the severity of symptoms shown, intensity of services needed, and/or the medical risk in this patient being treated as an outpatient.
[2017-07-17] MEDS ORDERED: Enoxaparin 100 mg Syringe SC STA (14:12)
[2017-07-17] MEDS ORDERED: Sodium Chloride 0.9% 1,000 ML IV SCH (15:30)
[2017-07-17] MEDS ORDERED: Albuterol-Ipratrop 3 mg / 0.5 (3 ml) UD INH PRN (15:36)
--- NOTE | 2017-07-17 17:01 | RAD ---
HISTORY: COMPARISON: 07/09/2017. TECHNIQUE: Chest PA and lateral FINDINGS: LINES AND TUBES: None. LUNG AND PLEURA: The lungs are well inflated. There is subsegmental atelectasis in the lower lobes. HEART AND MEDIASTINUM: The heart is not enlarged. The hilar and mediastinal contours are within normal limits. SKELETAL STRUCTURES: The bony structures are within normal limits for the patient's age. VISUALIZED UPPER ABDOMEN: Normal. OTHER FINDINGS: None. IMPRESSION: No acute findings.
--- NOTE | 2017-07-18 07:03 | CP.PCM.HP ---
<Eh Castro - Last Filed: 07/18/17 07:05> History of Present Illness - History of Present Illness History of Present Illness: Patient evaluated at bedside with Dr Salinas this morning. 42 yo ,f, s/p Right plantar fasciotomy 06/12/17 presented to ED Yesterday c/o new onset rash after being DC from [facility] on 07/12/16 for DVT/PE and started on Xarelto for anticoagulation. Denies CP, SOB, palpitations, changes in urination or stools, cough or diarrhea. As per patient rash appeared in the neck area and spread to limbs and abdomen, but now has almost completely subsided. She developed a low grade fever overnight in the hospital and has no new complains this morning. Xarelto was stopped at ED after suspicion of an allergic reaction. She received 90 mg of Lovenox SQ, Bendadryl and Methylprednisolone Present on Admission - Present on Admission Any Indicators Present on Admission: Yes History of DVT/PE: Yes Review of Systems - Review of Systems All systems: reviewed and no additional remarkable complaints except - Integumentary Integumentary: Rash Past Patient History - Past Medical History & Family History Past Medical History?: No - Past Social History Smoking Status: Never Smoked - CARDIAC Hx Cardiac Disorders: Yes Hx Circulatory Problems: Yes - PULMONARY Hx Respiratory Disorders: Yes Hx Pulmonary Embolism: Yes - NEUROLOGICAL Hx Neurological Disorder: No - HEENT Hx HEENT Problems: No - RENAL Hx Chronic Kidney Disease: No - ENDOCRINE/METABOLIC Hx Endocrine Disorders: No - HEMATOLOGICAL/ONCOLOGICAL Hx AIDS: No Hx Human Immunodeficiency Virus (HIV): No - INTEGUMENTARY Hx Dermatological Problems: No - MUSCULOSKELETAL/RHEUMATOLOGICAL Hx Musculoskeletal Disorders: No Hx Falls: No - GASTROINTESTINAL Hx Gastrointestinal Disorders: No - GENITOURINARY/GYNECOLOGICAL Hx Genitourinary Disorders: No - PSYCHIATRIC Hx Psychophysiologic Disorder: No Hx Substance Use: No - SURGICAL HISTORY Hx Surgeries: Yes Other/Comment: Right plantar fasciotomy - ANESTHESIA Hx Anesthesia: Yes Hx Anesthesia Reactions: No Hx Malignant Hyperthermia: No Has any member of the family had a problem w/ anesthesia?: No Meds Allergies/Adverse Reactions: Allergies Allergy/AdvReac Type Severity Reaction Status Date / Time rivaroxaban [From Xarelto] AdvReac RASH Verified 07/19/17 02:06 Physical Exam - Constitutional Appears: Non-toxic, No Acute Distress - Head Exam Head Exam: NORMAL INSPECTION - Eye Exam Eye Exam: EOMI, PERRL - ENT Exam ENT Exam: Mucous Membranes Moist - Respiratory Exam Respiratory Exam: Clear to Auscultation Bilateral, NORMAL BREATHING PATTERN. absent: Rhonchi, Respiratory Distress - Cardiovascular Exam Cardiovascular Exam: REGULAR RHYTHM, +S1, +S2. absent: Gallop - GI/Abdominal Exam GI & Abdominal Exam: Normal Bowel Sounds, Soft. absent: Tenderness - Extremities Exam Extremities exam: Positive for: normal inspection. Negative for: calf tenderness, pedal edema - Neurological Exam Neurological exam: Alert, Normal Gait, Oriented x3 - Psychiatric Exam Psychiatric exam: Normal Affect, Normal Mood - Skin Skin Exam: Rash (few macular/pink lesions noticed on collar area and abd that appear fading), Warm Results - Vital Signs Recent Vital Signs: Last Vital Signs Temp 97.4 F L 07/18/17 05:00 Pulse 65 07/18/17 05:00 Resp 16 07/18/17 05:00 BP 105/63 07/18/17 05:00 Pulse Ox 99 07/18/17 05:00 - Labs Result Diagrams: 07/17/17 13:03 07/17/17 13:03 Labs: Laboratory Results - last 24 hr 07/17/17 07/17/17 07/17/17 13:03 13:03 13:03 WBC 7.0 RBC 4.18 Hgb 12.8 Hct 37.3 MCV 89.3 MCH 30.6 MCHC 34.3 RDW 13.6 Plt Count 359 MPV 7.7 Neut % (Auto) 68.7 Lymph % (Auto) 23.2 [place] % (Auto) 4.8 Eos % (Auto) 2.6 Baso % (Auto) 0.7 Neut # (Auto) 4.8 Lymph # (Auto) 1.6 [place] # (Auto) 0.3 Eos # (Auto) 0.2 Baso # (Auto) 0.0 PT 12.7 INR 1.1 APTT 36.0 Sodium 140 Potassium 4.2 Chloride 101 Carbon Dioxide 26 Anion Gap 17 BUN 13 Creatinine 0.5 L Est GFR ( Amer) > 60 Est GFR (Non-Af Amer) > 60 Random Glucose 117 H Calcium 8.9 Total Bilirubin 0.3 AST 47 H D ALT 137 H D Alkaline Phosphatase 70 Total Protein 7.1 Albumin 3.8 Globulin 3.2 Albumin/Globulin Ratio 1.2 Assessment & Plan - Assessment and Plan (Free Text) Assessment: Allergic reaction poss due to medication side effect Stop Xarelto and start Lovenox and poss bridge to Pradexa/Eliquis Hem-onc consult IV NS 1L C/W Benadryl PRN DVT/PE Stable Asymptomatic F/U Hem-onc recs for anticoagulation Low grade fever 100.4 last night Asymptomatic Monitor F/U Cultures <Salinas,Jorge K - Last Filed: 07/20/17 10:58> Results - Vital Signs Recent Vital Signs: Last Vital Signs Temp 98.9 F 07/19/17 16:22 Pulse 81 07/19/17 16:22 Resp 20 07/19/17 16:22 BP 105/68 07/19/17 16:22 Pulse Ox 97 07/19/17 16:22 - Labs Result Diagrams: 07/19/17 08:40 07/19/17 08:40 Assessment & Plan - Assessment and Plan (Free Text) Assessment: Patient was personally seen and examined by me in rounds with residents. Available labs and diagnostic data reviewed. Case, patient's conditions and management plan discussed with residents in rounds. Agree with resident's progress note. Plan: As ordered.
[2017-07-18] MEDS: Enoxaparin 100 mg Syringe SC SCH ×2 (08:41→21:05)
[2017-07-18] MEDS ORDERED: Enoxaparin 80 mg Syringe SC SCH (09:00)
[2017-07-18 09:18] LABS: HEMOGLOBIN 12.5 g/dL (12.0-16.0); MEAN CELL VOLUME 88.9 fl (81.0-99.0); MEAN CORPUSCULAR HEMOGLOBIN 30.1 pg (27.0-31.0); MEAN CORPUSCULAR HGB CONC 33.9 g/dL (33.0-37.0); RBC 4.14 Mil/uL (3.80-5.20); RED CELL DISTRIBUTION WIDTH 13.8 % (11.5-14.5)
[2017-07-18 09:19] LABS: WHITE BLOOD COUNT 19.5 K/uL (4.8-10.8)
--- NOTE | 2017-07-18 09:25 | CP.PCM.CON ---
History of Present Illness - History of Present Illness History of Present Illness: This is a 42 yrs old female who was admitted because of an allergic reaction to the zarelto. Pt had surgery for plantar fasciatis 3 weeks ago. She developed a DVT right lower extremity and pulmonary embolism . She was initially started on lovenox and was given xarelto on discharge. Three days later she had a little rash on her neck, but soon spread to the entire body with itching. She came to the ER and was given benadryl. no chest pain or shortness of breath. No calf pain. The rash has gone away as has te itching. Accordeing to the pt the only allergy she has is to lactose, but she did not drink any milk since she went home. she has not taken xarelto since then, and is on lovenox. She is to be seen by podiatry today. Past Patient History - Past Medical History & Family History Past Medical History?: No - Past Social History Smoking Status: Never Smoked - CARDIAC Hx Cardiac Disorders: Yes Hx Circulatory Problems: Yes - PULMONARY Hx Respiratory Disorders: Yes Hx Pulmonary Embolism: Yes - NEUROLOGICAL Hx Neurological Disorder: No - HEENT Hx HEENT Problems: No - RENAL Hx Chronic Kidney Disease: No - ENDOCRINE/METABOLIC Hx Endocrine Disorders: No - HEMATOLOGICAL/ONCOLOGICAL Hx AIDS: No Hx Human Immunodeficiency Virus (HIV): No - INTEGUMENTARY Hx Dermatological Problems: No - MUSCULOSKELETAL/RHEUMATOLOGICAL Hx Musculoskeletal Disorders: No Hx Falls: No - GASTROINTESTINAL Hx Gastrointestinal Disorders: No - GENITOURINARY/GYNECOLOGICAL Hx Genitourinary Disorders: No - PSYCHIATRIC Hx Psychophysiologic Disorder: No Hx Substance Use: No - SURGICAL HISTORY Hx Surgeries: Yes Other/Comment: Right plantar fasciotomy - ANESTHESIA Hx Anesthesia: Yes Hx Anesthesia Reactions: No Hx Malignant Hyperthermia: No Has any member of the family had a problem w/ anesthesia?: No Meds Allergies/Adverse Reactions: Allergies Allergy/AdvReac Type Severity Reaction Status Date / Time No Known Allergies Allergy Verified 07/17/17 12:13 - Medications Medications: Current Medications Acetaminophen (Tylenol 325mg Tab) 650 mg PO Q4 PRN PRN Reason: Fever >100.4 F Last Admin: 07/17/17 21:12 Dose: 650 mg Albuterol/Ipratropium (Duoneb 3 Mg/0.5 Mg (3 Ml) Ud) 3 ml INH RQ6 PRN PRN Reason: Shortness of Breath Diphenhydramine HCl (Benadryl) 25 mg PO Q6 PRN PRN Reason: Itching / Pruritus Last Admin: 07/18/17 00:09 Dose: 25 mg Enoxaparin Sodium (Lovenox) 90 mg SC Q12 MERVIN PRN Reason: Protocol Last Admin: 07/18/17 08:41 Dose: 90 mg Physical Exam - Additional Findings Additional findings: Physical exam; Alert,well oriented in no acute distress. no rashes or itching Neck; Supple, no adenopathy Chest: clear, no rales or rhonchi Heart; RSR, no murmur Extremities. No swelling or tenderness. Results - Vital Signs Recent Vital Signs: Last Vital Signs Temp 98.7 F 07/18/17 08:00 Pulse 86 07/18/17 08:00 Resp 20 07/18/17 08:00 BP 108/68 07/18/17 08:00 Pulse Ox 97 07/18/17 08:00 - Labs Result Diagrams: 07/18/17 08:48 07/17/17 13:03 Labs: Laboratory Results - last 24 hr 07/17/17 07/17/17 07/17/17 13:03 13:03 13:03 WBC 7.0 RBC 4.18 Hgb 12.8 Hct 37.3 MCV 89.3 MCH 30.6 MCHC 34.3 RDW 13.6 Plt Count 359 MPV 7.7 Neut % (Auto) 68.7 Lymph % (Auto) 23.2 [place] % (Auto) 4.8 Eos % (Auto) 2.6 Baso % (Auto) 0.7 Neut # (Auto) 4.8 Lymph # (Auto) 1.6 [place] # (Auto) 0.3 Eos # (Auto) 0.2 Baso # (Auto) 0.0 PT 12.7 INR 1.1 APTT 36.0 Sodium 140 Potassium 4.2 Chloride 101 Carbon Dioxide 26 Anion Gap 17 BUN 13 Creatinine 0.5 L Est GFR ( Amer) > 60 Est GFR (Non-Af Amer) > 60 Random Glucose 117 H Calcium 8.9 Total Bilirubin 0.3 AST 47 H D ALT 137 H D Alkaline Phosphatase 70 Total Protein 7.1 Albumin 3.8 Globulin 3.2 Albumin/Globulin Ratio 1.2 Assessment & Plan - Assessment and Plan (Free Text) Assessment: Impression: Rashes secondary to allergic reaction to Zarelto. DVT , lower extremity and pulmonary thrombosis Plan: Plan; I would give her lovenox today and switch to eliquis tomorrow am. If no side effect, may discharge. Would repeat the venous doppler for the lower extremities. - Date & Time Date: 07/18/17 Time: 09:35
[2017-07-18 09:42] LABS: ALB/GLOB RATIO 1.2 (1.0-2.1); ALT/SGPT 126 U/L (9-52); AST/SGOT 45 U/L (14-36); BLOOD UREA NITROGEN 16 mg/dl (7-17); CALCIUM 9.4 mg/dL (8.4-10.2); GFR AFRICAN-AMERICAN > 60; GFR NON-AFRICAN AMERICAN > 60
--- NOTE | 2017-07-18 15:56 | US ---
PROCEDURE: Bilateral lower extremity venous duplex Doppler. HISTORY: DVT/Interval change COMPARISON: Lower extremity ultrasound dated 07/09/2017. TECHNIQUE: Bilateral common femoral, superficial femoral, popliteal and posterior tibial veins were evaluated. Flow was assessed with color Doppler, compressibility, assessment of phasic flow and augmentation response. FINDINGS: COMMON FEMORAL VEIN: Right CFV: Unremarkable. Left CFV: Unremarkable. SUPERFICIAL FEMORAL VEIN: Right SFV: Unremarkable. Left SFV: Unremarkable. POPLITEAL VEIN: Right Popliteal: Intraluminal echogenic material, incomplete compressibility and partial Doppler flow. Left Popliteal: Unremarkable. POSTERIOR TIBIAL VEIN: Right PTV: Intraluminal echogenic material, incomplete compressibility and partial Doppler flow. Left PTV: Unremarkable. OTHER FINDINGS: None. IMPRESSION: Interval propagation of known right lower extremity nonocclusive deep venous thrombosis into the posterior tibial veins. No evidence of deep venous thrombosis in the left lower extremity venous system. JOCELYN Jefferson notified by the cardiopulmonary technologist chief.
[2017-07-19] MEDS: Enoxaparin 100 mg Syringe SC SCH (08:49)
[2017-07-19 09:24] LABS: HEMOGLOBIN 12.6 g/dL (12.0-16.0); MEAN CELL VOLUME 90.2 fl (81.0-99.0); MEAN CORPUSCULAR HEMOGLOBIN 30.1 pg (27.0-31.0); MEAN CORPUSCULAR HGB CONC 33.4 g/dL (33.0-37.0); RBC 4.18 Mil/uL (3.80-5.20); RED CELL DISTRIBUTION WIDTH 14.1 % (11.5-14.5); WHITE BLOOD COUNT 9.9 K/uL (4.8-10.8)
[2017-07-19 09:39] LABS: ALB/GLOB RATIO 1.1 (1.0-2.1); ALBUMIN 3.8 g/dL (3.5-5.0); ALT/SGPT 99 U/L (9-52); AST/SGOT 32 U/L (14-36); BLOOD UREA NITROGEN 18 mg/dl (7-17); GFR AFRICAN-AMERICAN > 60; GFR NON-AFRICAN AMERICAN > 60
--- NOTE | 2017-07-19 09:47 | CP.PCM.PN ---
Subjective - Date & Time of Evaluation Date of Evaluation: 07/19/17 Time of Evaluation: 09:45 - Subjective Subjective: Pt has absolutely no symptoms. no shortness of breath or chest pain. No more rashes either, Will start her on eliquis 2.5 mg bid. and discharge her in the evening. Objective - Vital Signs/Intake and Output Vital Signs (last 24 hours): Temp Pulse Resp BP Pulse Ox 98.2 F 77 18 107/73 99 07/19/17 08:00 07/19/17 08:00 07/19/17 08:00 07/19/17 08:00 07/19/17 08:00 - Medications Medications: Current Medications Acetaminophen (Tylenol 325mg Tab) 650 mg PO Q4 PRN PRN Reason: Fever >100.4 F Last Admin: 07/17/17 21:12 Dose: 650 mg Albuterol/Ipratropium (Duoneb 3 Mg/0.5 Mg (3 Ml) Ud) 3 ml INH RQ6 PRN PRN Reason: Shortness of Breath Diphenhydramine HCl (Benadryl) 25 mg PO Q6 PRN PRN Reason: Itching / Pruritus Last Admin: 07/18/17 00:09 Dose: 25 mg Enoxaparin Sodium (Lovenox) 90 mg SC Q12 MERVIN PRN Reason: Protocol Last Admin: 07/19/17 08:49 Dose: 90 mg - Labs Labs: 07/19/17 08:40 07/19/17 08:40 PT 12.7 Seconds (9.8-13.1) 07/17/17 13:03 INR 1.1 (0.9-1.2) 07/17/17 13:03 APTT 36.0 Seconds (25.6-37.1) 07/17/17 13:03
--- NOTE | 2017-07-19 11:00 | CP.PCM.DIS ---
Provider - Provider Date of Admission: 07/17/17 14:21 Attending physician: Jorge Salinas MD Consults: Hem-Onc Time Spent in preparation of Discharge (in minutes): 30 Diagnosis - Discharge Diagnosis (1) Adverse reaction to drug Status: Resolved Comment: Xarelto stopped. Patient to be DC on Eliquis BID (2) DVT (deep venous thrombosis) Status: Acute Comment: Stable. C/W Anticoagulant 3-6 months (3) Pulmonary embolism Status: Acute Comment: Asymptomatic Hospital Course - Lab Results Lab Results: Micro Results 07/18/17 06:11 Urine,Clean Catch Urine Culture - Final No Growth (<1,000 CFU/ML) 07/17/17 20:39 Blood-Venous Blood Culture - Preliminary NO GROWTH AFTER 24 HOURS Most Recent Lab Values WBC 9.9 K/uL (4.8-10.8) 07/19/17 08:40 RBC 4.18 Mil/uL (3.80-5.20) 07/19/17 08:40 Hgb 12.6 g/dL (12.0-16.0) 07/19/17 08:40 Hct 37.7 % (34.0-47.0) 07/19/17 08:40 MCV 90.2 fl (81.0-99.0) 07/19/17 08:40 MCH 30.1 pg (27.0-31.0) 07/19/17 08:40 MCHC 33.4 g/dL (33.0-37.0) 07/19/17 08:40 RDW 14.1 % (11.5-14.5) 07/19/17 08:40 Plt Count 370 K/uL (130-400) 07/19/17 08:40 MPV 7.7 fl (7.2-11.7) 07/17/17 13:03 Neut % (Auto) 68.7 % (50.0-75.0) 07/17/17 13:03 Lymph % (Auto) 23.2 % (20.0-40.0) 07/17/17 13:03 [place] % (Auto) 4.8 % (0.0-10.0) 07/17/17 13:03 Eos % (Auto) 2.6 % (0.0-4.0) 07/17/17 13:03 Baso % (Auto) 0.7 % (0.0-2.0) 07/17/17 13:03 Neut # (Auto) 4.8 K/uL (1.8-7.0) 07/17/17 13:03 Lymph # (Auto) 1.6 K/uL (1.0-4.3) 07/17/17 13:03 [place] # (Auto) 0.3 K/uL (0.0-0.8) 07/17/17 13:03 Eos # (Auto) 0.2 K/uL (0.0-0.7) 07/17/17 13:03 Baso # (Auto) 0.0 K/uL (0.0-0.2) 07/17/17 13:03 PT 12.7 Seconds (9.8-13.1) 07/17/17 13:03 INR 1.1 (0.9-1.2) 07/17/17 13:03 APTT 36.0 Seconds (25.6-37.1) 07/17/17 13:03 Sodium 143 mmol/l (132-148) 07/19/17 08:40 Potassium 4.1 MMOL/L (3.6-5.0) 07/19/17 08:40 Chloride 105 mmol/L (98-107) 07/19/17 08:40 Carbon Dioxide 26 mmol/L (22-30) 07/19/17 08:40 Anion Gap 16 (10-20) 07/19/17 08:40 BUN 18 mg/dl (7-17) H 07/19/17 08:40 Creatinine 0.6 mg/dl (0.7-1.2) L 07/19/17 08:40 Est GFR ( Amer) > 60 07/19/17 08:40 Est GFR (Non-Af Amer) > 60 07/19/17 08:40 Random Glucose 81 mg/dL (65-105) 07/19/17 08:40 Calcium 9.0 mg/dL (8.4-10.2) 07/19/17 08:40 Total Bilirubin 0.3 mg/dl (0.2-1.3) 07/19/17 08:40 AST 32 U/L (14-36) 07/19/17 08:40 ALT 99 U/L (9-52) H D 07/19/17 08:40 Alkaline Phosphatase 63 U/L (38-126) 07/19/17 08:40 Total Protein 7.2 G/DL (6.3-8.2) 07/19/17 08:40 Albumin 3.8 g/dL (3.5-5.0) 07/19/17 08:40 Globulin 3.3 gm/dL (2.2-3.9) 07/19/17 08:40 Albumin/Globulin Ratio 1.1 (1.0-2.1) 07/19/17 08:40 - Hospital Course Hospital Course: Patient evaluated at bedside with Dr Salinas this morning. 42 yo ,f, s/p Right plantar fasciotomy 06/12/17 admitted to hosp this time because new onset rash after being DC from [facility] on 07/12/16 for DVT/PE and started on Xarelto for anticoagulation. She developed a low grade fever the first night she stayed in the hospital and has no new complains this morning. Xarelto was stopped at ED after suspicion of an allergic reaction. She was started 90 mg of Lovenox SQ BID until this morning when she was switched to Eliquis 2.5mg BID. IF she tolerates it well she will eb DC home in the evening as per Hem-onc recs. Discharge Exam - Head Exam Head Exam: NORMAL INSPECTION - Eye Exam Eye Exam: EOMI, PERRL - ENT Exam ENT Exam: Mucous Membranes Moist - Respiratory Exam Respiratory Exam: Clear to PA & Lateral, NORMAL BREATHING PATTERN, UNREMARKABLE - Cardiovascular Exam Cardiovascular Exam: REGULAR RHYTHM, +S1, +S2. absent: Gallop - GI/Abdominal Exam GI & Abdominal Exam: Normal Bowel Sounds, Soft, Unremarkable. absent: Tenderness - Neurological Exam Neurological exam: Alert, Normal Gait, Oriented x3 - Psychiatric Exam Psychiatric exam: Normal Affect, Normal Mood - Skin Skin Exam: Intact, Normal Color, Warm Discharge Plan - Discharge Medications Prescriptions: Apixaban [Eliquis] 2.5 mg PO BID #60 tab - Follow Up Plan Condition: STABLE Disposition: HOME/ ROUTINE Patient education suggested?: Yes Instructions: Adverse Drug Reactions, Adult (DC), Deep Vein Thrombosis (Blood Clots in the Legs) (DC), Pulmonary Embolism (Blood Clot in the Lungs) (DC) Referrals: Tessy Adames MD [Staff Provider] - Jorge Salinas MD [Staff Provider] -
[2017-07-19 16:23] VITALS: BP 105/68; PULSE 81; RESP 20; TEMP 98.9; O2SAT 97
--- NOTE | 2017-07-21 10:26 | PQF GENQUE ---
Dr. Salinas pt was admitted with allergic reaction to xarelto due to deep vein thrombosis and pulmonary embolism. Please clarify below acuity of deep vein thrombosis and pulmonary embolism. Deep vein thrombosis []acute []chronic []history Pulmonary embolism []acute []chronic []history This form is a permanent part of the medical record Clarification of your documentation is requested to better reflect the severity of illness and intensity of treatment of your patient. Indicators present [] Specify: [] [] Specify: [] [] Specify: [] [] Specify: [] Location in the medical record that reflects the above clinical findings: [] Treatment Provided: [] PHYSICIAN'S RESPONSE Based on your medical judgment of the clinical indicators outlined above please clarify the following: [] Practitioner response [] If unable to determine, please check the box, sign and date. Present On Admission (POA) Indicator: [] Present at the time of admission [] Not present at the time of admission [] Clinically Undetermined In responding to this query, please exercise your independent professional judgment. The fact that a question is asked does not imply that any particular answer is desired or expected. Thank you for your clarification on this documentation. If you have any questions please call:[ ] * Thank you, [ ]Eli [employer]
== END 2017-07-19 18:35 | disposition home or self-care (01) | DRG 607 ==
LOC: H.ER 11:51 → H.ERHOLD 14:21 → H.TEL 17:32
PROVIDERS: ADMIT Internal Medicine; ATTEND Internal Medicine
DX: L27.0 Generalized skin eruption due to drugs and medicaments taken internally (principal); I27.82 Chronic pulmonary embolism; I82.531 Chronic embolism and thrombosis of right popliteal vein; R50.9 Fever, unspecified; T45.515A Adverse effect of anticoagulants, initial encounter; Z79.01 Long term (current) use of anticoagulants